=== PATIENT | female | born 1990 | race Caucasian/White ===

== ENCOUNTER 2017-04-20 11:48 | Emergency (ER) | payer OTHER ==
[~2017-04-20 11:48] MED LIST: FIORIC PO; PREN1TAB30
[2017-04-20 12:09] VITALS: BP 102/66; PULSE 79
--- NOTE | 2017-04-20 12:50 | PD ---
HPI Chief Complaint Pelvic pressure and cramping Date Seen: Apr 20, 2017 Time Seen: 12:48 Travel History International Travel<30 Days: No Contact w/Intl Traveler<30Days: No Known Affected Area: No History of Present Illness HPI 26-year-old female who is at 23 weeks today comes in complaining of pelvic congestion, pelvic pressure, and cramping since 9 PM last night. Patient states that she has not been ill no nausea vomiting but she's had some mild diarrhea. She states to for she feels the achiness in her hips and upper legs. Denies vaginal bleeding or discharge. Patient's had 2 prior sections both at term gestation Weeks Gestation: 23 Para: 2 : 4 Miscarriage: 1 History Past Medical History Medical History: Denies Significant Hx Obstetric History Obstetric History 2 Past Surgical History Surgical History: No Previous Surgery Family History Family History: Negative Social History Alcohol Use: No Tobacco Use: No Substance Abuse: No Allergies-Medications (Allergen,Severity, Reaction): Coded Allergies: Sulfa (Sulfonamide Antibiotics) (Unverified Allergy, Unknown, Rash, ) Home Meds Reported Medications Acetamin/Butalbital/Caffeine (Fioricet Tab) 1 Tab Tab, 1 TAB PO Q4H Y for MIGRAINE, TAB 09/28/13 Vit W/ Ferrous Fumara ( Vitamin 27-0.8 mg) 1 Tab Tab 09/28/13 Review of Systems Except as stated in HPI: all other systems reviewed are Neg Physical Exam Narrative GENERAL: Well-nourished, well-developed patient. SKIN: Warm and dry. HEAD: Normocephalic and atraumatic. EYES: No scleral icterus. No injection or drainage. ENT: No nasal drainage noted. Mucous membranes pink. Airway patent. NECK: Supple, trachea midline. No JVD. CARDIOVASCULAR: Regular rate and rhythm without murmurs, gallops, or rubs. RESPIRATORY: Breath sounds equal bilaterally. No accessory muscle use. ABDOMEN/GI: Abdomen soft, non-tender, bowel sounds present, no rebound, no guarding Gravid to [23-] weeks size Fundal Height: [-] GENITOURINARY: External Genitalia: intact and normal in appearance BUS glands: [-Normal] Cervix: [-] Visually closed Dilatation: [-] Effacement: [-] Station: [-] Presentation: [-] Membranes: [intact or ruptured] Uterine Contractions: [-] None seen on external toco FHT's: Category: [-1] Baseline: [140-] Reactive: [Moderate-] Variability: [-Moderate] Decels: [-Absent] EXTREMITIES: No cyanosis or edema. BACK: Nontender without obvious deformity. No CVA tenderness. NEUROLOGICAL: Awake and alert. Motor and sensory grossly within normal limits. Five out of 5 muscle strength in all muscle groups. Normal speech. Data Data Vital Signs Reviewed: Yes Orders Orders Vital Signs (Adult) .ON ADMISSION (04/20/17 12:46) ^ Labor Status (04/20/17 12:46) Urinalysis - C+S If Indicated (04/20/17 12:46) Diet Liquid (04/20/17 Lunch) Fibronectin (04/20/17 12:46) Labs Laboratory Tests Test 04/20/17 12:12 Urine Color JYOTSNA Urine Turbidity HAZY Urine pH 6.0 Urine Specific [place] 1.024 Urine Protein 30 mg/dL Urine Glucose (UA) NEG mg/dL Urine Ketones NEG mg/dL Urine Occult Blood LARGE Urine Nitrite NEG Urine Bilirubin NEG Urine Urobilinogen 4.0 MG/DL Urine Leukocyte Esterase NEG Urine RBC /hpf Urine WBC LESS THAN 1 /hpf Urine Calcium Oxalate Crystals OCC /hpf Urine Mucus MANY /lpf Microscopic Urinalysis Comment CULT NOT INDICATED Fibronectin NEGATIVE MDM Medical Record Reviewed: Yes Plan 26yo at 23 weeks with pelvic pressure and negative FFN. Microscopic hematuria is noted and will be treated with antibiotics. Recommend recheck on UA after treatment is completed. Diagnosis Diagnosis: Primary Impression: 23 weeks gestation of Additional Impressions: Pelvic pressure in , antepartum Asymptomatic microscopic hematuria Disposition: DISCHARGE HOME Terri Sahu MD Apr 20, 2017 12:50
[2017-04-20 13:17] LABS: BLOOD, URINE LARGE (NEG); CALCIUM OXALATE CRYSTALS,URINE OCC /hpf; GLUCOSE,URINE NEG (NEG); KETONE, URINE NEG (NEG); MUCUS URINE MANY /lpf (OCC); NITRITE,URINE NEG (NEG)
[2017-04-20 13:18] LABS: URINE COLOR AMBER (YELLW/STRAW)
[2017-04-20 13:19] LABS: COMMENT (UR) CULT NOT INDICATED; CULTURE IF INDICATED CULT NOT INDICATED
[2017-04-20] MEDS ORDERED: MACR100C2 PO (14:57)
== END 2017-04-20 15:07 | disposition home or self-care (01) ==
LOC: HOBED 11:48
DX: O26.892 Other specified pregnancy related conditions, second trimester (principal); R10.2 Pelvic and perineal pain; R31.9 Hematuria, unspecified; Z3A.23 23 weeks gestation of pregnancy; Z79.899 Other long term (current) drug therapy; Z88.2 Allergy status to sulfonamides
CPT/HCPCS: 81001; 82731; 99284